=== PATIENT | male | born 1940 | race Caucasian/White ===

== ENCOUNTER → 2016-06-03 | Outpatient (CLI) | payer OTHER ==
[~2016-06-03] MED LIST: ARIXTRA2.5 MG/0.1 SQ; FOLIC ACID1 MG PO; GLUCOTROL PO; LORTAB 7.5-5001 TAB PO; MULTIVITAMIN PO; VITAMIN B-1000 MCG/1 IJ
--- NOTE | ~2016-06-03 | BD1 ---
[facility] A Service of [facility] & [facility] RADIOLOGY TEXT RESULTS PATIENT: ZENA CALDERON LOCATION: [facility] : 38 UNIT #: [id number] AGE: [address]: Fabio Veliz MD SEX: M ORDER DR: [id number] [facility] [address] [facility] [place], [place] [address] [id number] O MR#: [id number] Acc #: [id number] NAME: ZENA CALDERON : 1940 SEX: M STUDY DATE/TIME: 06/03/2016 14:58 UNIT: [facility] ROOM: STUDY DESCRIPTION: BD Dexa Bone Dens 1+ Site Attending Physician: Fabio Veliz M.D. Ordering Physician: Fabio Veliz M.D. Primary Care Physician: Fabio Veliz M.D. MEDICAL IMAGING REPORT This report is preliminary unless electronic signature is present EXAM DXA scan 06/03/2016 HISTORY Osteoporosis. Diabetes. Chronic kidney disease stage I. FINDINGS Bone mineral density in the lumbar spine from L1-L4 on 1.308 g/cm2 which is 2 standard deviations above the mean when compared to the young adult reference population which is within the range of normal. This is 3.1 standard deviations above the mean when compared to the age-matched population. Bone mineral density in the left femoral neck was 0.926 g/cm2 which is 00 standard deviations from the mean when compared to the young adult reference population which is within the range of normal. This is 1.4 standard deviations above the mean when compared to the age-matched population. IMPRESSION Bone mineral density in the lumbar spine and left hip within the range of normal. Dictated by... Андрей Razo M.D. THIS IS AN ELECTRONICALLY VERIFIED REPORT Андрей Razo M.D. at 06/05/2016 9:04 AM JESUS/briana TD: 06/03/2016 18:52 JOB #: [id number] MEDICAL IMAGING REPORT COPY
== END | disposition home or self-care (01) ==
LOC: CWCC 14:30
DX: Z13.820 Encounter for screening for osteoporosis (principal)
CPT/HCPCS: 77080